=== PATIENT | male | born 1970 | race Caucasian/White ===

== ENCOUNTER → 2022-11-30 | Outpatient (CLI) | payer OTHER ==
--- NOTE | 2022-12-01 16:16 | MR ---
EXAMINATION TYPE: MR angio head wo con DATE OF EXAM: 11/30/2022 COMPARISON: CT brain April 03, 2010. MRI brain July 15, 2017 HISTORY: Headaches, posterior rt side TECHNIQUE: Time of flight images focusing on the [place] were performed without contrast.. 2-D and 3-D postprocessing imaging is performed on independent workstation and reviewed. FINDINGS: Vertebral arteries are patent to the basilar junction with right vertebral artery noted sli ghtly larger or dominant. There are hypoplastic bilateral posterior communicating arteries. There is no significant focal stenosis or aneurysm in the posterior circulation. Images of the anterior circulation show nonvisualized anterior to indicating artery. Focal slight pro minence suspected tortuosity to the right anterior cerebral artery at C2 level image 99. No significa nt focal stenosis or aneurysm identified. IMPRESSION: No aneurysm at the level of the [place].
== END | disposition home or self-care (01) ==
LOC: RADMRIMAIN 07:48
PROVIDERS: ATTEND Family Medicine
DX: G43.009 Migraine without aura, not intractable, without status migrainosus (principal)
CPT/HCPCS: 70544